=== PATIENT | female | born 1960 | race Two or more races ===

== ENCOUNTER 2024-03-01 12:56 | Outpatient (REF) | payer OTHER, SELFPAY ==
--- NOTE | ~2024-03-01 | MR_ITS ---
EXAMINATION: MR SHOULDER WITHOUT CONTRAST, RIGHT CLINICAL INFORMATION: Right shoulder pain. COMPARISON: None available. TECHNIQUE: MRI of the shoulder without contrast was performed on a high-field scanner. FINDINGS: ROTATOR CUFF: Mild undersurface fraying of the distal supraspinatus tendon. Subscapularis insertional tendinosis. No muscle atrophy or fatty infiltration. BICEPS: Normal. CORACOACROMIAL ARCH: The undersurface of the acromion is laterally downsloping with no subacromial spur. Minimal acromioclavicular osteoarthritis. LABRUM/CAPSULE: No evidence of a labral tear. GLENOHUMERAL JOINT/MARROW: Small degenerative cysts at the anterior and posterior aspects of the humeral head with a trace joint effusion. Minimal degenerative marrow change of the greater tuberosity anteriorly. MR/MR shoulder RT wo con IMPRESSION: 1. Mild undersurface fraying of the distal supraspinatus tendon. Subscapularis insertional tendinosis. Rotator cuff otherwise intact. 2. Laterally downsloping acromion. Minimal acromioclavicular osteoarthritis. 3. Mild glenohumeral osteoarthritis with a trace joint effusion.
== END 2024-03-01 12:57 | disposition home or self-care (01) ==
LOC: HO.MRI 12:56
PROVIDERS: PCP Family Medicine Sports Medicine; Visit Provider Family Medicine Sports Medicine
DX: M25.511 Pain in right shoulder (principal)
CPT/HCPCS: 73221